=== PATIENT | female | born 1970 | race Caucasian/White ===

== ENCOUNTER 2021-08-30 20:50 | Emergency (ER) | payer OTHER, BC, SELFPAY ==
--- NOTE | ~2021-08-30 | XR_ITS ---
EXAMINATION: XR chest 1V portable Exam Date/Time: 08/30/2021 21:10 CDT CLINICAL HISTORY: ETOH Comparison: None available. RESULT: Lines, tubes, and devices: None. Lungs and pleura: Clear. Cardiomediastinal silhouette: Normal cardiomediastinal silhouette. Other: No acute osseous or upper abdominal finding. IMPRESSION: No acute cardiopulmonary process Reviewed, dictated and finalized at location K.
[2021-08-30 20:53] VITALS: BP 165/133; PULSE 104; RESP 20; TEMP 37; O2SAT 97
--- NOTE | 2021-08-30 21:04 | ECG_ITS ---
Measurements Intervals [place] Rate: 81 P: 71 DE: 145 QRS: 80 QRSD: 98 T: 53 QT: 377 QTc: 438 Interpretive Statements SINUS RHYTHM DELAYED PRECORDIAL R/S TRANSITION BASELINE ARTIFACT- I, II, III, AVR, AVL, AVF, V1, V4 BORDERLINE ECG Electronically Signed On 08-31-2021 7:05:14 CDT by Alex Amaro D.O.
--- NOTE | 2021-08-30 21:04 | ED.ALCOHOL ---
HPI - Alcohol General Chief Complaint: Alcohol <Celeste Patterson MD - Last Filed: 08/31/21 06:36> Stated Complaint: ETOH 1/5 PINT DAILY W/D <Celeste Patterson MD - Last Filed: 08/31/21 06:36> Time Seen by Provider: 08/30/21 21:04 <Celeste Patterson MD - Last Filed: 08/31/21 06:36> Source: patient and EMS <Celeste Patterson MD - Last Filed: 08/31/21 06:36> Mode of arrival: EMS <Celeste Patterson MD - Last Filed: 08/31/21 06:36> Limitations: intoxication <Celeste Patterson MD - Last Filed: 08/31/21 06:36> History of Present Illness HPI narrative: Pt reportedly found at gas station trying to by alcohol tonight, and the gas load dispatcher refused to sell the patient additional alcohol. The patient then became frantic and upset, thus police were called, and ultimately ambulance was contacted. Pt states she drinks 1/5 daily and if she doesn't drink will go into DTs. Pt denying SI or HI. She is quite tearful and mildly agitated at time of assessment. She appears acutely intoxicated. Pt rocking back and forth on bed stating that she wants her baby back. Pt will not elaborate further. History limited secondary to her intoxication. <Celeste Patterson MD - Last Filed: 08/31/21 06:36> Related Data Allergies/Adverse Reactions: Allergies Allergy/AdvReac Type Severity Reaction Status Date / Time tetracycline AdvReac Hives Verified 08/30/21 21:01 <Celeste Patterson MD - Last Filed: 08/31/21 06:36> Review of Systems Review of Systems: ROS unobtainable: Yes unobtainable due to medical condition (acute intoxication) <Celeste Patterson MD - Last Filed: 08/31/21 06:36> [facility] Social History Social History: Social History (Updated 08/30/21 @ 21:09 by Celeste Patterson MD) Smoking status: Current every day smoker Alcohol intake: current Substance use: unknown Living arrangements: with family Gender identity (if verbalized by the patient): Female <Celeste Patterson MD - Last Filed: 08/31/21 06:36> Exam Narrative: GENERAL: Awake, alert, intoxicated, tearful HEAD: Normocephalic, atraumatic. EYES: PERRLA and EOMI. ENT: Nares clear, no rhinorrhea or epistaxis. Mucous membranes moist. NECK: Supple. CHEST: No respiratory distress, breathing even and non labored HEART: Tachycardic rate, sinus rhythm ABDOMEN:Non distended, non tender EXTREMITIES: Normal range of motion. No edema. SKIN: Warm, dry, no rash. NEURO:No focal deficits. Alert and oriented x1, pt following commands, can state her name and identify she is at a hospital <Celeste Patterson MD - Last Filed: 08/31/21 06:36> Course Vital Signs Vital signs: Vital Signs Temperature 37.0 C 08/30/21 20:53 Pulse Rate 104 H 08/30/21 20:53 Respiratory Rate 20 08/30/21 20:53 Blood Pressure 165/133 H 08/30/21 20:53 Pulse Oximetry 97 08/30/21 20:53 Temperature 37.0 C 08/30/21 20:53 Pulse Rate 97 08/31/21 13:58 Respiratory Rate 20 08/31/21 13:58 Blood Pressure 154/82 H 08/31/21 13:58 Pulse Oximetry 97 08/31/21 13:58 <Celeste Patterson MD - Last Filed: 08/31/21 06:36> MDM - Alcohol MDM Narrative Medical decision making narrative: Pt presenting for evaluation of acute intoxication. At time of assessment, ABCs intact and pt is mildly tachycardic. Laboratory results show no significant leukocytosis or anemia. No electrolyte derangement. No evidence of acute infection. Her alcohol is significantly elevated consistent with acute intoxication. At this point, patient does not have any evidence of elevated CIWA score. She is not diaphoretic, tremulous, no significant tachycardia. No evidence of DTs at this point. Drug screen is notable for cocaine and benzodiazepines. Patient has quite a bit of time to pass before she will have clinical sobriety. I asked that she had a family were that could help transport her home and she does not. Patient without any SI or HI at the
[2021-08-30] MEDS: LORazepam INJ (*CRX) 2 MG/ML VIAL 1 MG IV PUSH ×2 (21:20→23:08)
[2021-08-30] MEDS: FAMOTIDINE 20 MG/2 ML VIAL IV PUSH (21:22)
[2021-08-30] MEDS: THIAMINE HCL 200 MG/2 ML VIAL 100 MG IV PUSH (21:30)
[2021-08-30] MEDS: SODIUM CHLORIDE 0.9% IV 1,000 ML 999 ML IV CONT ×2 (21:30→23:08)
[2021-08-30 21:38] LABS: Basophils Absolute Auto 0.1 K/mm3 (0.0-0.1); Basophils Percent Auto 1.4 % (0.2-1.2); Eosinophils Percent Auto 0.9 % (0-4.4); Hematocrit 42.1 % (37.0-47.0); Hemoglobin 14.5 g/dL (12.0-15.0); Lymphocytes Absolute Auto 2.29 K/mm3 (0.9-3.2); Lymphocytes Percent Auto 52.3 % (18.3-44.2); Mean Corpuscular HGB Conc 34.4 g/dl (32-36); Mean Corpuscular Hemoglobin 28.3 pg (26-34); Mean Corpuscular Volume 82.1 fl (80-100); Mean Platelet Volume 9.7 fl (7.4-10.4); Monocytes Absolute Auto 0.3 K/mm3 (0.1-0.6); Monocytes Percent Auto 6.2 % (2.6-8.5); Neutrophils Absolute Auto 1.7 K/mm3 (1.3-6.7); Neutrophils Percent Auto 39.2 % (45.5-73.1); Platelet Count Result 181 k/mm3 (150-375); Red Blood Count 5.13 M/mm3 (4.2-5.4); Red Cell Distribution Width 13.8 % (11.5-14.5); White Blood Count 4.4 K/mm3 (4.5-10.0)
[2021-08-30 21:46] LABS: Alanine Aminotransferase 49 U/L (4-35); Albumin Level 4.3 g/dL (3.5-5.1); Alkaline Phosphatase 95 U/L (38-126); Anion Gap 8 mmol/L (8-16); Aspartate Amino Transferase 99 U/L (14-36); Bilirubin,Total 0.3 mg/dL (0.2-1.3); Blood Urea Nitrogen 11 mg/dL (7-17); Carbon Dioxide 28 mmol/L (22-30); Chloride 106 mmol/L (98-107); Estimated CRCL calculation 78 ml/min; Estimated Glomerular Filt Rate > 60; Glucose 115 mg/dL (65-110); Lipase 100 U/L (23-300); Potassium 4.3 mmol/L (3.4-5.0); Sodium 142 mmol/L (137-145)
[2021-08-30 22:18] LABS: Ethanol 355 mg/dL (<10)
[2021-08-30] MEDS: FOLIC ACID 1 MG/0.2 ML INJ IV PUSH (22:22)
[2021-08-30 22:25] VITALS: BP 131/95; PULSE 88; RESP 18; O2SAT 99
[2021-08-30 22:26] LABS: Appearance Urine Clear (Clear); Bilirubin Urine Negative (Negative); Blood Urine 1+ (Negative); Color Urine Yellow (Yellow); Glucose Urine UA Negative (Negative); Ketones Urine Negative (Negative); Leukocyte Esterase Ur Trace LEU/UL (Negative); Nitrate Urine Negative (Negative); Protein Urine 2+ mg/dL (Negative); Specific Grav Ur 1.025 (1.001-1.035); Urobilinogen Urine 0.2 mg/dL (<2.0); pH Urine 5.5 (5.0-9.0)
[2021-08-30 22:30] LABS: Add Urine Microscopic? YES; Bacteria Urine Trace /hpf; Mucus Urine Rare /lpf; Squamous Epithelial Cell Urine Occasional /hpf (Few); WBC Urine 0-3 /hpf
[2021-08-30 22:34] LABS: Magnesium 2.1 mg/dL (1.6-2.3); Phosphorus 4.8 mg/dL (2.5-4.5)
[2021-08-30 22:41] LABS: Amphetamine Screen Urine Negative (Negative); Barbiturate Screen Urine Negative (Negative); Benzodiazepines Screen Urine Positive (Negative); Cannabinoid Screen Urine Negative (Negative); Cocaine Screen Urine Positive (Negative); Methadone Screen Urine Negative (Negative); Opiate Screen Urine Negative (Negative); Phencyclidine Screen Urine Negative (Negative)
[2021-08-30] MEDS: diphenhydrAMINE HCl INJ 50 MG/ML VIAL 25 MG IV PUSH (23:09)
[2021-08-30 23:27] VITALS: BP 136/95; PULSE 79; RESP 18; O2SAT 100
[2021-08-31] VITALS (8 sets, daily range): BP systolic 109–158; BP diastolic 78–98; PULSE 68–118; RESP 12–22; O2SAT 95–99
--- NOTE | 2021-08-31 07:32 | PC.NURSE ---
Called dietary and ordered breakfast tray for pt at this time, spoke to Julieta.
--- NOTE | 2021-08-31 07:44 | PC.NURSE ---
This RN assumed care of pt at this time. Bedside report received from Callie DALAL. Discussed POC with Pt, upright and alert on stretcher. Pt A&O x4 at this time. Requesting food at this time, food tray ordered. Pt placed on bed alarm and given call light. Education given masonry contractor administrator light. VSS.
--- NOTE | 2021-08-31 11:55 | PC.NURSE ---
Per Dr Anya ambriz to give pt 1mg Ativan IVP for anxiety.
[2021-08-31] MEDS: LORazepam INJ (*CRX) 2 MG/ML VIAL 1 MG IV PUSH (12:06)
[2021-08-31 15:23] LABS: Ethanol < 10 mg/dL (<10)
[2021-08-31] MEDS: LORazepam (*CRX) 0.5 MG TABLET 2 MG PO (16:19)
--- NOTE | 2021-08-31 16:20 | PCCCNOTE ---
Requested by ER consulting database administrator to meet with patient about transportation. Met with patient at bedside she states that she needs to get to her car, [place] but she does not know the name or exact location. Asked patient if she needs resources for alcohol or substance abuse, and she states that she has already been in contact with [place]. She does not have any family or friends that can give her a ride and she must get to her car which has all her stuff. She states that she was en route to [place]. Confirmed that her insurance is [employer] asked if she has used their transportation benefits before and she doesn't know. Called to [facility] spoke with customer service they confirm that she does have transportation benefits, transferred to [facility] to set up discharge transportation. Spoke with rep, her benefit will only allow transportation from the hospital to her home. They will not transport her to get her car which is only 12 miles away. Spoke with patient and she states that she has to get with her car. Cancelled ride with insurance. Spoke with consulting database administrator and per EMS run report patient's car location is: [facility] [address] [id number]. Cab voucher provided for patient, and given to the RN Mari.
== END 2021-08-31 16:26 | disposition home or self-care (01) ==
PROVIDERS: Emergency Medicine; Emergency Provider Emergency Medicine
DX: F10.129 Alcohol abuse with intoxication, unspecified (principal); Y90.8 Blood alcohol level of 240 mg/100 ml or more; F17.210 Nicotine dependence, cigarettes, uncomplicated; R94.31 Abnormal electrocardiogram [ECG] [EKG]
CPT/HCPCS: 36415; 71045; 80053; 80307; 81001; 83690; 83735; 84100; 84443; 85025; 93005; 96361; 96374; 96375; 96376; 99284; A9270; J1200; J2060; J3411; J7030